=== PATIENT | female | born 1975 | race Caucasian/White ===

== ENCOUNTER 2019-04-29 08:07 | Outpatient (REF) | payer MEDICAID, SELFPAY ==
[2019-04-29 13:40] LABS: Chol HDL Ratio 7.41 mg/dL (0.0-4.40); Cholesterol 200 mg/dL (0-200); Glucose 173 mg/dL (65-115); HDL Cholesterol 27 mg/dL (60-100); LDL Cholesterol Calculated 101 mg/dL (50-129); LDL HDL Ratio 3.74 RATIO (0.00-3.22); Triglycerides 359 mg/dL (0-150)
[2019-04-29 13:49] LABS: Estmated Average Glucose 143; Hemoglobin A1C 6.6 % (4.0-6.0)
== END 2019-04-29 08:08 | disposition home or self-care (01) ==
LOC: LAB 08:07
PROVIDERS: Family Provider Family Medicine; PCP Family Medicine; Visit Provider Dermatology
DX: Z01.89 Encounter for other specified special examinations (principal)
CPT/HCPCS: 80061; 82947; 83036

== ENCOUNTER 2019-05-03 13:39 | Outpatient (CLI) | payer MEDICAID, SELFPAY ==
--- NOTE | 2019-05-03 13:49 | US_ITS ---
WS: [id number] Pelvic ultrasound, 05/03/2019 Clinical Data: PELVIC PAIN Comparison: Pelvic ultrasound, 05/04/2014. Findings: Patient has had a hysterectomy The left ovary was not identified. The right ovary measures 2.52 x 3.86 x 2.39 cm. There is a cyst in the right ovary measuring 1.79 x 1 .99 x 2.42 cm. No fluid is seen in the cul-de-sac. US/US pelvic with transvaginal Impression: 1. Small right ovarian cyst. 2. Left ovary not identified. 3. Hysterectomy.
== END 2019-05-03 13:40 | disposition home or self-care (01) ==
LOC: US 13:42
PROVIDERS: Family Provider Family Medicine; PCP Family Medicine; Visit Provider Nurse Practitioner Family
DX: N83.201 Unspecified ovarian cyst, right side (principal)
CPT/HCPCS: 76830; 76856

== ENCOUNTER 2020-08-24 20:25 | Emergency (ER) | payer MEDICAID, SELFPAY ==
[2020-08-24] VITALS (7 sets, daily range): BP systolic 125–160; BP diastolic 85–99; PULSE 87–101; RESP 16–22; TEMP 37.2; O2SAT 97–99; BMI 53.9
--- NOTE | 2020-08-24 20:41 | XRR_ITS ---
PROCEDURE INFORMATION: Exam: XR Chest Exam date and time: 08/24/2020 8:44 PM Age: 45 years old Clinical indication: Other: Chest pain; Additional info: Cp TECHNIQUE: Imaging protocol: XR of the chest. Views: 1 view. COMPARISON: CR Chest 1 [place] [id number] 09/13/2016 8:06 PM FINDINGS: The lungs are clear of infiltrate. There are no pleural effusions or pneumothorax. The heart size and pulmonary vascularity are normal. XR/XR chest 1V portable [id number] IMPRESSION: No active disease.
--- NOTE | 2020-08-24 20:41 | ECG_ITS ---
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
[2020-08-24 20:58] LABS: Basophils % 0.1 %; Hematocrit 41.2 % (37.0-47.0); Lymphocytes # 2.3 10^3/uL (0.8-4.8); Lymphocytes % 30.1 %; Mean Corpuscular Volume 88.4 fL (81-99); Mean Platelet Volume 11.1 fL (7.4-10.4); Monocytes # 0.6 10^3/uL (0.2-0.9); Monocytes % 7.5 %; Neutrophils # 4.69 10^3/uL (1.8-7.7); Neutrophils % 61.9 %; Nucleated Red Blood Cells % 0 %; Platelet Count 342 10^3/cmm (130-400); Red Blood Count 4.66 10^6/uL (4.1-5.3); Red Cell Distribution Width 14.6 % (12.1-15.1); White Blood Count 7.6 10^3/uL (4.0-10.0)
[2020-08-24 21:13] LABS: Troponin(5th) Baseline 6 ng/L (0-10)
[2020-08-24 21:17] LABS: Alanine Aminotransferase 18 U/L (0-33); Albumin Level 3.9 g/dL (3.5-5.2); Alkaline Phosphatase 151 IU/L (35-105); Anion Gap 18.9 (5-19); Aspartate Amino Transferase 14 U/L (0-32); Blood Urea Nitrogen 10 mg/dL (6-20); Calcium 8.4 mg/dL (8.5-10.5); Carbon Dioxide 21 mmol/L (22-29); Chloride 102 mmol/L (98-107); Globulin 2.7 g/dL (1.3-4.6); Glomerular Filtration Rate 90.1 mL/min (90-130); Glucose 346 mg/dL (65-115); NT Pro B Type Natriuretic Pept 24 pg/mL (0-125); Osmolality Calculated 299 mOsm/kg (285-295); Potassium 3.9 mmol/L (3.5-5.1); Sodium 138 mmol/L (136-145); Total Bilirubin 0.3 mg/dL (0.15-1.2); Total Protein 6.6 g/dL (6.6-8.7)
[2020-08-24] MEDS: morphine 4 mg/mL SDV 1 mL IVP (21:17)
[2020-08-24] MEDS: ondansetron 2 mg/ML SDV 2 mL 4 MG IVP (21:17)
[2020-08-24 21:34] LABS: Lipase 54 U/L (13-60)
[2020-08-24] MEDS: insulin regular-human 100 units/1 mL 8 UNIT IVP (21:39)
[2020-08-24 22:10] LABS: Glucose Point of Care 258 mg/dL (70-110)
[2020-08-24 22:39] LABS: Troponin 5 2HR Delta 0 ABS# (0-10)
--- NOTE | 2020-08-24 22:41 | ECG_ITS ---
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
--- NOTE | 2020-08-25 04:48 | ED_ITS ---
HPI - Chest Pain General: Chief Complaint: Chest Pain Stated Complaint: CP Time Seen by Provider: 08/24/20 20:27 History of Present Illness: HPI narrative: 45-year-old female with a history of hypertension. She presents with chest discomfort radiating to her back and her face. She denies any cough or fever. States it started suddenly while watching TV. It is still present on arrival. She has diabetes, and takes Trulicity. Her blood sugar was noted to be in the 400s on EMS arrival as well. This has the patient concerned. MD complaint: chest pain Pertinent past history: other Onset (ago): hour(s) Timing of current episode: constant Prior episodes: No Onset: during rest Pain location: substernal and left chest Pain radiation: back and other Quality: aching and sharp Relieving factors: nothing Exacerbating factors: nothing Associated symptoms: Reports abdominal pain, diaphoresis and nausea; Deny dyspnea, fever(s), leg edema, palpitations or vomiting Review of Systems Const: Reports: diaphoresis; Denies: fever(s) Eyes: Reports: blurry vision Card: Denies: palpitations Resp: Denies: dyspnea GI: Reports: abdominal pain and nausea; Denies: vomiting Physical Exam Const: GENERAL APPEARANCE: well developed and anxious ORIENTATION/CONSCIOUSNESS: Yes oriented to person, Yes oriented to place and Yes oriented to time HENMT: COMMON NORMALS: normocephalic HEAD & SCALP: normocephalic FACE & SINUS: normal facial exam THROAT: no peritonsillar mass Eye: COMMON NORMALS: EOMs intact bilaterally and conjunctivae normal EYELID: eyelids normal CONJUNCTIVA: Yes conjunctivae normal Neck/C-Spine: GENERAL: No tracheal deviation CERVICAL SPINE: Yes normal cervical lordosis and No Cervical spine tenderness Chest: COMMONS NORMALS: normal inspection of the chest CHEST: Yes tenderness Resp: COMMON NORMALS: clear to auscultation bilaterally EFFORT & INSPECTION: No tachypneic, No respiratory distress, No retractions, No uses accessory muscles and No tracheal deviation AUSCULTATION: clear to auscultation bilaterally, no rhonchi, no wheezes and lung sounds not diminished Cardio: COMMON NORMALS: regular rate and regular rhythm RATE: regular rate RHYTHM: regular rhythm HEART SOUNDS: no murmurs PERIPHERAL PULSES: radial pulses present GI: INSPECTION: No abdominal distension AUSCULTATION: No Hyperactive bowel sounds present and No Hypoactive bowel sounds present PALPATION: No Guarding due to palpation present (GI) and No Rigid due to palpation PERCUSSION: no dullness to percussion and no tympanic to percussion Neuro: SENSORIUM/ORIENTATION: Yes oriented to person, Yes oriented to place and Yes oriented to time Psych: COMMON NORMALS: mental status grossly normal Skin: COMMON NORMALS: no rashes or lesions noted GENERAL SKIN EXAM: no rashes or lesions noted Course Vital Signs: Vital signs: Vital Signs Temperature 99.0 F 08/24/20 20:40 Pulse Rate 87 08/24/20 23:48 Respiratory Rate 16 08/24/20 23:48 Blood Pressure 157/91 08/24/20 23:48 Pulse Oximetry 98 08/24/20 23:48 MDM - Chest Pain MDM Narrative: Medical decision making narrative: 45-year-old female with an atypical type chest pain. And is reproducible on exam. EKG shows no acute changes. Troponin did not elevated 2 hours. Her laboratory is otherwise benign. She will be allowed home. She was counseled on her diagnosis of chest wall pain or costochondritis. She has diabetes, her blood sugar was high. It came down with IV insulin here. Because of this, we are not using steroids on this patient. She also has a history of an allergy that is significant to ibuprofen, so we will not be using anti-inflammatories. Lab Data: Labs: Lab Results 08/24/20 08/24/20 08/24/20 Range/Units 20:20 20:20 20:20 WBC 7.6 (4.0-10.0) 10^3/ uL RBC 4.66 (4.1-5.3) 10^6/u L Hgb 14.0 (11.5-15.3) g/dL Hct 41.2 (37.0-47.0) % MCV 88.4 (81-99) fL MCH 30.0 (28.0-34.0) pg MCHC 34.0 (30.0-36.0) g/dL RDW 14.6 (12.1-15.1) % Plt Count 342 (130-400) 10^3/c mm MPV 11.1 H (7.4-10.4) fL Neut % (Auto) 61.9 % Lymph % (Auto) 30.1 % [place] % (Auto) 7.5 % Eos % (Auto) 0.0 % Baso % (Auto) 0.1 % Neut # (Auto) 4.69 (1.8-7.7) 10^3/u L Lymph # (Auto) 2.3 (0.8-4.8) 10^3/u L [place] # (Auto) 0.6 (0.2-0.9) 10^3/u L Eos # (Auto) 0.0 (0.0-0.8) 10^3/u L Baso # (Auto) 0.0 (0.0-0.1) 10^3/u L Nucleated RBC % (a uto) 0 % Nucleated RBCs # 0.0 /100WBC Sodium 138 (136-145) mmol/L Potassium 3.9 (3.5-5.1) mmol/L Chloride 102 (98-107) mmol/L Carbon Dioxide 21 L (22-29) mmol/L Anion Gap 18.9 (5-19) BUN 10 (6-20) mg/dL Creatinine 0.7 (0.5-0.9) mg/dL GFR Calculation 90.1 (90-130) mL/min Glucose 346 H (65-115) mg/dL POC Glucose (70-110) mg/dL Calculated Osmolal ity 299 H (285-295) mOsm/k g Calcium 8.4 L (8.5-10.5) mg/dL Total Bilirubin 0.3 (0.15-1.2) mg/dL AST 14 (0-32) U/L ALT 18 (0-33) U/L Alkaline Phosphata se 151 H (35-105) IU/L Troponin T Baselin e 6 (0-10) ng/L Troponin T [address] [place] (0-10) ng/L Delta Troponin T (0-10) ABS# NT-Pro-B Natriuret Pep 24 (0-125) pg/mL Total Protein 6.6 (6.6-8.7) g/dL Albumin 3.9 (3.5-5.2) g/dL Globulin 2.7 (1.3-4.6) g/dL Lipase (13-60) U/L 08/24/20 08/24/20 08/24/20 Range/Units 20:20 22:07 22:08 WBC (4.0-10.0) 10^3/ uL RBC (4.1-5.3) 10^6/u L Hgb (11.5-15.3) g/dL Hct (37.0-47.0) % MCV (81-99) fL MCH (28.0-34.0) pg MCHC (30.0-36.0) g/dL RDW (12.1-15.1) % Plt Count (130-400) 10^3/c mm MPV (7.4-10.4) fL Neut % (Auto) % Lymph % (Auto) % [place] % (Auto) % Eos % (Auto) % Baso % (Auto) % Neut # (Auto) (1.8-7.7) 10^3/u L Lymph # (Auto) (0.8-4.8) 10^3/u L [place] # (Auto) (0.2-0.9) 10^3/u L Eos # (Auto) (0.0-0.8) 10^3/u L Baso # (Auto) (0.0-0.1) 10^3/u L Nucleated RBC % (a uto) % Nucleated RBCs # /100WBC Sodium (136-145) mmol/L Potassium (3.5-5.1) mmol/L Chloride (98-107) mmol/L Carbon Dioxide (22-29) mmol/L Anion Gap (5-19) BUN (6-20) mg/dL Creatinine (0.5-0.9) mg/dL GFR Calculation (90-130) mL/min Glucose (65-115) mg/dL POC Glucose 258 H (70-110) mg/dL Calculated Osmolal ity (285-295) mOsm/k g Calcium (8.5-10.5) mg/dL Total Bilirubin (0.15-1.2) mg/dL AST (0-32) U/L ALT (0-33) U/L Alkaline Phosphata se (35-105) IU/L Troponin T Baselin e (0-10) ng/L Troponin T [address] [place] 6.00 (0-10) ng/L Delta Troponin T 0 (0-10) ABS# NT-Pro-B Natriuret Pep (0-125) pg/mL Total Protein (6.6-8.7) g/dL Albumin (3.5-5.2) g/dL Globulin (1.3-4.6) g/dL Lipase 54 (13-60) U/L Discharge Plan Discharge Patient Disposition: Home Clinical Impression: Chest pain Qualifiers: Chest pain type: unspecified Qualified Code(s): R07.9 - Chest pain, unspecified Condition: Stable Prescriptions: No Action atorvastatin 40 mg Tablet 40 mg PO BEDTIME@2200 RF: 0 tizanidine 4 mg Tablet 4 mg PO TID PRN (Reason: MUSCLE SPASMS) RF: 0 hydrocodone-acetaminophen 5-325 mg Tablet 1 tab PO Q4H PRN (Reason: Pain) RF: 0 propranolol 20 mg Tablet 20 mg PO BID@0600,2200 RF: 0 topiramate 50 mg Tablet 50 mg PO BID@0600,2200 RF: 0 Discharge Orders: Discharge ED (Routine); Ordered 08/24/20 Ordered By: Jf Mann Referrals: Socrates Olvera [Primary Care Provider] - 1-3 days Patient Instructions: Chest Pain (ED) Activity Restrictions/Additional Instructions: Return for return of or worsening chest pain, fever, cough, shortness of breath, any other concerning symptoms. Coding Level of Care Code ED Stylist Apprentice for Candace Gauthier
== END 2020-08-24 23:45 | disposition home or self-care (01) ==
PROVIDERS: Emergency Provider Emergency Medicine; PCP Family Medicine
DX: R07.9 Chest pain, unspecified (principal)
CPT/HCPCS: 36415; 36416; 71045; 80053; 82962; 83690; 83880; 84484; 85025; 93005; 96374; 96375; 99284; J1815; J2270; J2405

== ENCOUNTER → 2021-04-03 07:52 | Outpatient (BNVA) | payer MEDICAID, SELFPAY | PROVIDERS: PCP Family Medicine; Referring Provider Nurse Practitioner Family; Visit Provider Specialist | DX: G62.9 Polyneuropathy, unspecified (principal); R29.818 Other symptoms and signs involving the nervous system | CPT/HCPCS: 95885; 95886; 95910; 99202 ==

== ENCOUNTER → 2021-06-20 10:18 | Outpatient (BNVA) | payer MEDICAID, SELFPAY | PROVIDERS: PCP Family Medicine; Visit Provider Specialist | DX: E11.40 Type 2 diabetes mellitus with diabetic neuropathy, unspecified (principal); R29.818 Other symptoms and signs involving the nervous system; E53.8 Deficiency of other specified B group vitamins; E66.3 Overweight; Z68.43 Body mass index [BMI] 50.0-59.9, adult | CPT/HCPCS: 99214; 99215 ==

== ENCOUNTER → 2021-09-19 12:59 | Outpatient (BNVA) | payer MEDICAID, SELFPAY | PROVIDERS: PCP Family Medicine; Visit Provider Surgery | DX: R19.4 Change in bowel habit (principal); R10.9 Unspecified abdominal pain; K76.0 Fatty (change of) liver, not elsewhere classified | CPT/HCPCS: 99203 ==

== ENCOUNTER 2021-11-18 07:36 | Outpatient (CLI) | payer MEDICAID, SELFPAY ==
--- NOTE | 2021-11-18 08:00 | US_ITS ---
WS: [id number] ULTRASOUND ABDOMEN LIMITED CLINICAL INFORMATION: rule out fatty liver COMPARISON: None. FINDINGS: Liver Size: Enlarged Craniocaudal length: 24.0 cm. Echogenicity: Coarse Surface nodularity: None. Mass (size and location): None. Bile ducts Intrahepatic ducts: Normal. Common bile duct diameter: 0.5 cm. Gallbladder Cholecystectomy Pancreas Normal as visualized. Right kidney: Normal. Hydronephrosis: None. Size: 11.3 cm x 4.4 cm x 5.4 cm. Abdominal aorta and IVC Visualized portions are normal. Ascites: None. US/US liver [id number] IMPRESSION: 1. Hepatomegaly with diffuse fatty infiltration liver. 2. Prior cholecystectomy. 3. No hydronephrosis in RIGHT kidney. 4. Normal common bile duct. 5. No ascites.
== END 2021-11-18 07:37 | disposition home or self-care (01) ==
LOC: RAD 07:37
PROVIDERS: PCP Family Medicine; Visit Provider Surgery
DX: R10.9 Unspecified abdominal pain (principal); E66.01 Morbid (severe) obesity due to excess calories; R16.0 Hepatomegaly, not elsewhere classified; K76.89 Other specified diseases of liver; Z90.49 Acquired absence of other specified parts of digestive tract
CPT/HCPCS: 76705

== ENCOUNTER 2021-12-12 06:23 | Day surgery (SDC) | payer MEDICAID, SELFPAY ==
[2021-12-10 11:00] VITALS: BMI 50.9
[2021-12-12 06:38] VITALS: BP 174/137; PULSE 94; RESP 18; TEMP 36.1; O2SAT 93
[2021-12-12] MEDS: sodium chloride 0.9% 1,000 ML 30 ML IV (06:44)
--- NOTE | 2021-12-12 07:12 | ANES.PREANE2 ---
Pre-Anesthetic Assessment Height/Weight: Height 1.73 m Weight 151.953 kg Temp Pulse Resp BP Pulse Ox O2 Del Method 97.0 F L 94 18 174/137 93 12/12/21 06:38 12/12/21 06:38 12/12/21 06:38 12/12/21 06:38 12/12/21 06:38 12/12/21 06:38 Preop Diagnosis: Abdominal pain and change in bowel habit Operation Date: 12/12/21 07:45 Proposed Procedures p 33479 - EGD [id number] R19.4(Not Applicable) - Jose Morrison MD s Colonoscopy(Not Applicable) - Jose Morrison MD Familial anesthetic complications: none Was Beta Marilia taken within 24 hours: N/A (Held since 12/10/21) Last intake: Intake Last Liquid Date 12/11/21 Last Liquid Time 23:50 Last Solid Date 12/10/21 Last Solid Time 19:00 Social No alcohol and No tobacco Exam alert, oriented x 3, clear to auscultation bilaterally and regular rate & rhythm Airway Cervical ROM: Other (Limited extension d/t pain ) Mallampati: Class II Dentition: full Pulmonary Asthma (As a child) and Sleep Apnea CV/HEM None reported None reported Hepatic Fatty liver GI Abdominal pain Metabolic Diabetes Mellitus and Hyperlipidemia [facility] Osteoarthritis/DJD Neuropsych Neuropathy Anesthetic Plan ASA status: 3 Anesthesia: Anesthesia Evaluation, General and MAC Other: I discussed with the patient risks, goals, and benefits of MAC and general anesthesia. We discussed spectrum of MAC anesthesia including conversion to general as well as possibility of recall of intraoperative stimuli including discomfort/pain. Patient agrees to proceed with MAC. Risk of > 500 ml blood loss (7ml/kg in children): No Medications/Allergies Home Medications Medication Instructions Recorded Confirmed Last Taken Type atorvastatin 40 mg tablet 40 mg PO BEDTIME@2200 08/24/20 12/12/21 12/10/21 History hydrocodone 5 mg-acetaminophen 325 1 tab PO Q4H PRN Pain 08/24/20 12/12/21 12/10/21 History mg tablet propranolol 20 mg tablet 20 mg PO BID@0600,2200 08/24/20 12/12/21 12/10/21 History tizanidine 4 mg tablet 4 mg PO TID PRN MUSCLE SPASMS 06/07/1112/12/21 12/10/21 History topiramate 50 mg tablet 50 mg PO BID@0600,2200 08/24/20 12/12/21 12/10/21 History dulaglutide 1.5 mg/0.5 mL 1.5 mg SUBCUT DIRECTED 09/19/21 12/12/21 12/08/21 History subcutaneous pen injector (Trulicity) sumatriptan succinate 100 mg tablet 100 mg PO ONCE PRN unknown 09/19/21 12/12/21 Unknown History Allergies Allergy/AdvReac Type Severity Reaction Status Date / Time cephalexin [From Keflex] Allergy ALGY-Anaphy Verified 12/12/21 06:35 laxis erythromycin base Allergy ALGY-Anaphy Verified 12/12/21 06:35 laxis ibuprofen Allergy ALGY-Anaphy Verified 12/12/21 06:35 laxis latex Allergy ALGY-Rash Verified 12/12/21 06:35 Penicillins Allergy ALGY-Rash Verified 12/12/21 06:35 silicone Allergy ALGY-Rash Verified 12/12/21 06:35 Sulfa (Sulfonamide Allergy ALGY-Anaphy Verified 12/12/21 06:35 Antibiotics) laxis triazolam [From Halcion] Allergy ALGY-Anaphy Verified 12/12/21 06:35 laxis Current Medications Generic Name Dose Route Start Last Admin Trade Name Freq PRN Reason Stop Dose Admin Sodium Chloride 1,000 mls @ 30 mls/hr 12/12/21 06:30 12/12/21 06:44 Sodium Chloride 0.9% IV 12/13/21 06:29 30 mls/hr .Q24H BUSTER Administration PFSH Anesthesia Social History Smoking and tobacco status: never smoked Alcohol intake: never History of recent travel: No Data Anesthesia Cardiac Studies: No Data to Display
--- NOTE | 2021-12-12 07:53 | P.HP_ITS ---
Same Day Surgery H&P Indication for Procedure/HPI DATE OF PROCEDURE: December 12, 2021 CHIEF COMPLAINT/INDICATIONFOR SURGICAL PROCEDURE: Bowel issues PREOP DIAGNOSIS: Abdominal pain and change in bowel habit PLANNED PROCEDURE: Operation Date: 12/12/21 07:45 Proposed Procedures p 16853 - EGD [id number] R19.4(Not Applicable) - Jose Morrison MD s Colonoscopy(Not Applicable) - Jose Morrison MD 09/19/2021 This is a pleasant 46 years old female patient morbidly obese with a current weight of 344 pounds and a BMI of 52.? Patient reports history of dull aching pain particularly in the upper abdomen associated with nausea and vomiting, patient had her gallbladder removed.? Also there is an association of mild hear tburn.? Her pain gets worse with spices and grease and gets better with bland food.? She reports in addition alternating bowel habits in the form of diarrhea and constipation and she often bleeds with her hemorrhoids.? When she has a flareup.? Patient is referred to me for further evaluation potential management Interim history 12/12/2021 Patient comes today for diagnostic EGD and colonoscopy. No much changes since last clinic visit ROS All systems have been reviewed negative except as for the above or per problem list. Medications/Allergies* Home Medications Medication Instructions Recorded Confirmed Type atorvastatin 40 mg tablet 40 mg PO BEDTIME@2200 08/24/20 12/12/21 History hydrocodone 5 mg-acetaminophen 325 1 tab PO Q4H PRN Pain 08/24/20 12/12/21 History mg tablet propranolol 20 mg tablet 20 mg PO BID@0600,2200 08/24/20 12/12/21 History tizanidine 4 mg tablet 4 mg PO TID PRN MUSCLE SPASMS 08/24/20 12/12/21 History topiramate 50 mg tablet 50 mg PO BID@0600,2200 08/24/20 12/12/21 History dulaglutide 1.5 mg/0.5 mL 1.5 mg SUBCUT DIRECTED 09/19/21 12/12/21 History subcutaneous pen injector (Trulicity) sumatriptan succinate 100 mg tablet 100 mg PO ONCE PRN unknown 09/19/21 12/12/21 History Allergies/Adverse Reactions Allergy/AdvReac Type Severity Reaction Status Date / Time cephalexin [From Keflex] Allergy ALGY-Anaphy Verified 12/12/21 07:54 laxis erythromycin base Allergy ALGY-Anaphy Verified 12/12/21 07:54 laxis ibuprofen Allergy ALGY-Anaphy Verified 12/12/21 07:54 laxis latex Allergy ALGY-Rash Verified 12/12/21 07:54 Penicillins Allergy ALGY-Rash Verified 12/12/21 07:54 silicone Allergy ALGY-Rash Verified 12/12/21 07:54 Sulfa (Sulfonamide Allergy ALGY-Anaphy Verified 12/12/21 07:54 Antibiotics) laxis triazolam [From Halcion] Allergy ALGY-Anaphy Verified 12/12/21 07:54 laxis Current Medications: Generic Name Dose Route Start Last Admin Trade Name Freq PRN Reason Stop Dose Admin Sodium Chloride 1,000 mls @ 30 mls/hr 12/12/21 06:30 12/12/21 06:44 Sodium Chloride 0.9% IV 12/13/21 06:29 30 mls/hr .Q24H BUSTER Administration Pertinent History/Comorbid Conditions* Social History Smoking and tobacco status: never smoked Alcohol intake: never History of recent travel: No Pertinent Exam Findings alert, oriented x 3, regular rate & rhythm and procedure specific exam findings (Abdominal exam nontender nondistended soft, obese) Recommendations Surgery/Procedure today (Diagnostic EGD and colonoscopy with possible biopsy) Coding Level of Care Code Acute International Representative for Candace Gauhtier
[2021-12-12 08:45] VITALS: BP 125/75; PULSE 98; RESP 12; TEMP 36.8; O2SAT 94
[2021-12-12 08:56] VITALS: BP 118/88; PULSE 100; RESP 18; O2SAT 96
--- NOTE | 2021-12-12 14:29 | ANE.PACU2 ---
Inpatient post-anesthesia follow up: Airway intact: Yes Vital signs: Temperature 98.3 F Pulse Rate 100 Respiratory Rate 18 Blood Pressure 118/88 Pulse Oximetry 96 Oxygen Delivery Me thod Room Air Oxygen Flow Rate Fraction of Inspir ed Oxygen Hydration adequate: Yes Nausea and vomiting: No Pain level: 1 Mental status: Baseline
== END 2021-12-12 09:24 | disposition home or self-care (01) ==
PROVIDERS: PCP Family Medicine; Visit Provider Surgery
PROC: 0DJ08ZZ Inspection of Upper Intestinal Tract, Via Natural or Artificial Opening Endoscopic (ICD-10-PCS; CPT 43235; principal; 2021-12-12 07:45)
PROC: 0DJD8ZZ Inspection of Lower Intestinal Tract, Via Natural or Artificial Opening Endoscopic (ICD-10-PCS; CPT 45378; 2021-12-12 07:45)
DX: R19.4 Change in bowel habit (principal); R10.9 Unspecified abdominal pain; E66.01 Morbid (severe) obesity due to excess calories; Z68.43 Body mass index [BMI] 50.0-59.9, adult; K57.30 Diverticulosis of large intestine without perforation or abscess without bleeding; K29.80 Duodenitis without bleeding; K29.50 Unspecified chronic gastritis without bleeding; E78.5 Hyperlipidemia, unspecified; E11.40 Type 2 diabetes mellitus with diabetic neuropathy, unspecified
CPT/HCPCS: 43239; 45378; 82274; 83630; 87493; 87506; 88305; 88342; J2704; J7030

== ENCOUNTER → 2021-12-26 14:26 | Outpatient (BNVA) | payer MEDICAID, SELFPAY | PROVIDERS: PCP Family Medicine; Visit Provider Surgery | DX: Z09 Encounter for follow-up examination after completed treatment for conditions other than malignant neoplasm (principal); K57.31 Diverticulosis of large intestine without perforation or abscess with bleeding; K29.70 Gastritis, unspecified, without bleeding; K76.0 Fatty (change of) liver, not elsewhere classified; R19.4 Change in bowel habit | CPT/HCPCS: 99213 ==

== ENCOUNTER → 2022-06-04 08:07 | Outpatient (BNVA) | payer MEDICAID, SELFPAY | PROVIDERS: PCP Family Medicine; Visit Provider Specialist | DX: E11.40 Type 2 diabetes mellitus with diabetic neuropathy, unspecified (principal); F44.5 Conversion disorder with seizures or convulsions; G43.019 Migraine without aura, intractable, without status migrainosus; K76.0 Fatty (change of) liver, not elsewhere classified; Z79.85 Long-term (current) use of injectable non-insulin antidiabetic drugs | CPT/HCPCS: 99215 ==

== ENCOUNTER 2022-06-04 09:22 | Outpatient (CLI) | payer MEDICAID, SELFPAY ==
[2022-06-04 10:01] LABS: Erythrocyte Sedimentation Rate 14 mm/hr (0-15)
[2022-06-04 10:33] LABS: Vitamin B12 218 pg/mL (232-1245)
[2022-06-04 10:34] LABS: Folate Level 14.6 ng/mL (4.8-37.3)
[2022-06-05 14:49] LABS: COMPLEMENT COMPONENT C3C 213 mg/dL (83-193); COMPLEMENT COMPONENT C4C 42 mg/dL (15-57)
[2022-06-06 13:03] LABS: ALBUMIN 3.8 g/dL (3.8-4.8); ALPHA 1 GLOBULIN 0.3 g/dL (0.2-0.3); ALPHA 2 GLOBULIN 0.9 g/dL (0.5-0.9); BETA 1 GLOBULIN 0.6 g/dL (0.4-0.6); BETA 2 GLOBULIN 0.5 g/dL (0.2-0.5); CENTROMERE B ANTIBODY <1.0 NEG AI (<1.0 NEG); COMPLEMENT, TOTAL (CH50) >60 U/mL (31-60); JO-1 ANTIBODY <1.0 NEG AI (<1.0 NEG); RNP ANTIBODY <1.0 NEG AI (<1.0 NEG); SCL-70 ANTIBODY <1.0 NEG AI (<1.0 NEG); SJOGREN'S ANTIBODY (SS-A) <1.0 NEG AI (<1.0 NEG); SM ANTIBODY <1.0 NEG AI (<1.0 NEG); SS-B <1.0 NEG AI (<1.0 NEG)
[2022-06-06 16:15] LABS: THYROID PEROXIDASE ANTIBODIES 3 IU/mL (<9)
[2022-06-10 10:59] LABS: DNA AB (DS) CRITHIDIA,IFA NEGATIVE (NEGATIVE)
[2022-06-10 14:20] LABS: ANA PATTERN Nuclear, Speckled; ANA SCREEN, IFA POSITIVE (NEGATIVE); ANA TITER 1:40 titer
== END 2022-06-04 09:23 | disposition home or self-care (01) ==
LOC: LAB 09:29
PROVIDERS: PCP Family Medicine; Visit Provider Specialist
DX: E11.40 Type 2 diabetes mellitus with diabetic neuropathy, unspecified (principal); G62.9 Polyneuropathy, unspecified; R29.818 Other symptoms and signs involving the nervous system
CPT/HCPCS: 36415; 82607; 82746; 83520; 84155; 84165; 85651; 86160; 86162; 86235; 86255; 86376; 86431

== ENCOUNTER → 2022-09-09 08:01 | Outpatient (BNVA) | payer MEDICAID, SELFPAY | PROVIDERS: PCP Family Medicine; Visit Provider Specialist | DX: E11.42 Type 2 diabetes mellitus with diabetic polyneuropathy (principal); F44.5 Conversion disorder with seizures or convulsions; K76.0 Fatty (change of) liver, not elsewhere classified; E53.8 Deficiency of other specified B group vitamins; Z79.85 Long-term (current) use of injectable non-insulin antidiabetic drugs | CPT/HCPCS: 99214 ==

== ENCOUNTER 2023-09-21 15:15 | Emergency (ER) | payer MEDICAID, SELFPAY ==
--- NOTE | 2023-09-21 15:14 | ECG_ITS ---
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 Measurements Intervals [place] Rate: 89 P: 47 [place]: 188 QRS: 11 QRSD: 98 T: -5 QT: 368 QTc: 450 Interpretive Statements SINUS RHYTHM NONSPECIFIC T-WAVE ABNORMALITY Compared to ECG 08/24/2020 23:05:45 T-wave abnormality now present Electronically Signed On 09-22-2023 21:52:22 CDT by Shanda Vidal M.D. [email or web address].[employer]/store/NU/[id number] f
--- NOTE | 2023-09-21 15:32 | XR_ITS ---
WS: [id number] XR chest 1V portable [id number] REASON FOR EXAM: chest pain FINDINGS: The chest is unchanged compared to 08/24/2020. Mild tortuosity of the thoracic aorta. Normal heart size. Calcified granulomatous disease in both hemithoraces. No acute pulmonary parenchymal or pleural abnormality. No lung nodule or lung mass. No adenopathy. Significant degenerative spondylosis in the mid and lower thoracic spine. XR/XR chest 1V portable [id number] IMPRESSION: Stable chest with no acute abnormality.
[2023-09-21 15:38] VITALS: BP 137/95; PULSE 95; RESP 18; TEMP 36.5; O2SAT 97; BMI 57.7
[2023-09-21 16:03] LABS: Basophils # 0.1 10^3/uL (0.0-0.1); Basophils % 0.6 %; Eosinophils # 0.1 10^3/uL (0.0-0.8); Eosinophils % 0.9 %; Hematocrit 47.8 % (36-47); Lymphocytes # 1.9 10^3/uL (0.8-4.8); Lymphocytes % 12.9 %; Mean Corpuscular HGB Conc 33.5 g/dL (30-55); Mean Corpuscular Hemoglobin 28.8 pg (27-33); Mean Corpuscular Volume 86.1 fl (85-98); Mean Platelet Volume 10.6 fL (7.4-10.4); Monocytes # 0.7 10^3/uL (0.2-0.9); Monocytes % 4.7 %; Neutrophils % 80.3 %; Nucleated Red Blood Cells % 0 %; Platelet Count 415 10^3/cmm (157-399); Red Blood Count 5.55 10^6/uL (3.85-5.65); Red Cell Distribution Width 14.2 % (12.1-15.1); White Blood Count 14.44 10^3/uL (3.29-11.43)
[2023-09-21 16:23] LABS: Troponin(5th) Baseline < 6 ng/L (0-10)
[2023-09-21 16:24] LABS: Alanine Aminotransferase 28 U/L (0-33); Albumin Level 4.6 g/dL (3.5-5.2); Alkaline Phosphatase 161 U/L (35-105); Anion Gap 18.5 (5-19); Aspartate Amino Transferase 20 U/L (0-32); Blood Urea Nitrogen 14 mg/dL (6-20); Calcium 9.9 mg/dL (8.5-10.5); Carbon Dioxide 22 mmol/L (22-29); Chloride 103 mmol/L (98-107); Creatinine Clr Calc Pharmacy 128.0644; Globulin 3.7 g/dL (1.3-4.6); Glomerular Filtration Rate 66.5 mL/min (90-130); Glucose 240 mg/dL (65-115); Osmolality Calculated 296 mOsm/kg (285-295); Potassium 4.5 mmol/L (3.5-5.1); Sodium 139 mmol/L (136-145); Total Bilirubin 0.4 mg/dL (0.15-1.2); Total Protein 8.3 g/dL (6.6-8.7)
--- NOTE | 2023-09-21 17:32 | ECG_ITS ---
[facility] Test Date: 2023-09-21 Pat Name: Rosemary Trevino Department: Room: Gender: Female Property Loss Insurance Claim Adjuster: : 1975 Requested By: Ynes Rahman Order Number: [id number] Karly MD: Shanda Vidal M.D. Measurements Intervals [place] Rate: 89 P: 38 MT: 179 QRS: 16 QRSD: 90 T: 37 QT: 361 QTc: 440 Interpretive Statements SINUS RHYTHM NONSPECIFIC T-WAVE ABNORMALITY Compared to ECG 09/21/2023 15:14:34 No significant changes Electronically Signed On 09-22-2023 22:07:36 CDT by Shanda Vidal M.D. [email or web address] [email or web address] biloxiAxerion Therapeuticsgood samaritan hospitalTELOS/store/OM/[id number]/ecg/[id number].pdf
--- NOTE | 2023-09-21 18:05 | CTR_ITS ---
PROCEDURE INFORMATION: Exam: CT Abdomen And Pelvis With Contrast Exam date and time: 09/21/2023 6:59 PM Age: 48 years old Clinical indication: Abdominal pain; Generalized; Additional info: Abd pain/vomiting w/ blood TECHNIQUE: Imaging protocol: Computed tomography of the abdomen and pelvis with contrast. Radiation optimization: All CT scans at this facility use at least one of these dose optimization techniques: automated exposure control; mA and/or kV adjustment per patient size (includes targeted exams where dose is matched to clinical indication); or iterative reconstruction. Contrast material: OMNI 350; Contrast volume: 100 ml; Contrast route: INTRAVENOUS (IV); COMPARISON: CT kidney stone [id number] 05/31/2017 9:30 PM RADIATION DOSE METRICS: Total DLP (mGy-cm): 1491.46 FINDINGS: Lungs: Lung bases are clear. No pleural effusion. Liver: Normal. No mass. Gallbladder and biliary ducts: The gallbladder has been resected. Pancreas: Normal. No ductal dilation. Spleen: Normal. No splenomegaly. Adrenal glands: Normal. No mass. Kidneys and ureters: Normal. No hydronephrosis. Stomach and bowel: Unremarkable. No obstruction. No mucosal thickening. Appendix: No evidence of appendicitis. Intraperitoneal space: Unremarkable. No free air. No significant fluid collection. Vasculature: Unremarkable. No abdominal aortic aneurysm. Lymph nodes: Unremarkable. No enlarged lymph nodes. Urinary bladder: Unremarkable as visualized. Reproductive: Unremarkable as visualized. Bones/joints: Unremarkable. No acute fracture. Soft tissues: Unremarkable. CT/CT abdomen pelvis w con* [id number] IMPRESSION: No acute findings.
--- NOTE | 2023-09-21 18:07 | ED_ITS ---
HPI - Chest Pain 2 General: Chief Complaint: Chest Pain Stated Complaint: chest pain, vomit, fainting Time Seen by Provider: 09/21/23 17:53 Source: patient Mode of arrival: ambulatory Limitations: no limitations History of Present Illness: Patient is a 48-year-old female who presents to the emergency department complaining of multiple symptoms beginning at 1500 today. Patient states she had sudden onset of nausea and vomiting stating that there is blood in her vomit. This was associated with some upper abdominal pain, chest pain that radiated to the back, and shortness of breath. She notes that she had a heart attack when she was 19, however was not hospitalized, did not receive a cardiac cath, and did not have outpatient cardiac workup. She is morbidly obese and does appear anxious at this time. She has boot on her left ankle which she says is from injuring herself trying to kick a cricket, and states this is being worked up at this time. She feels short of breath at this time, however states that the rest of her symptoms are not present. No other pertinent past medical history to report other than diabetes. MD complaint: chest pain and other (Shortness of breath, abdominal pain, nausea and vomiting) Pertinent past history: prior PA (Subjective) Onset (ago): hour(s) Timing of current episode: now resolved (Still feels short of breath) Prior episodes: No Onset: during rest Pain location: substernal Pain radiation: back Severity: mild Relieving factors: nothing Exacerbating factors: nothing Associated symptoms: Reports abdominal pain, dyspnea, nausea and vomiting; Deny fever(s) or palpitations Treatment prior to arrival: none Review of Systems 2 General: Reports: 10 or more systems reviewed and unremarkable except in HPI and below Const: Denies: fever(s), chills or fatigue Eyes: Denies: change in vision ENMT: Denies: throat pain, ear or mastoid pain or nasal discharge Card: Reports: chest pain; Denies: palpitations, swelling of feet/ankles or lightheadedness Resp: Reports: dyspnea; Denies: productive cough or wheezing GI: Reports: abdominal pain, nausea, vomiting and hematemesis; Denies: diarrhea or constipation : Denies: flank pain, difficulty voiding, dysuria or urinary frequency Musc: Denies: neck pain, back pain or joint pain Skin/Breast: Denies: rash Neuro: Denies: headache(s), numbness in extremities or weakness in extremities PFSH ED 2 PFSH: Medical History Abdominal pain Social History Smoking and tobacco/nicotine status: never used tobacco/nicotine Alcohol intake: never Substance/Drug Use: never Physical Exam 2 Const: COMMON NORMALS: no acute distress, patient oriented x3 and no limitations GENERAL APPEARANCE: cooperative, anxious and appears older than stated age NUTRITIONAL APPEARANCE: obese morbidly obese O RIENTATION/CONSCIOUSNESS: Yes awake, Yes oriented to person, Yes oriented to place and Yes oriented to time HENMT: COMMON NORMALS: normocephalic, atraumatic, hearing grossly normal bilaterally, moist oral mucous membranes and oropharynx normal HEAD & SCALP: normocephalic and atraumatic Eye: COMMON NORMALS: Equal, round and reactive pupils present, EOMs intact bilaterally and conjunctivae normal CONJUNCTIVA: Yes conjunctivae normal P UPIL: Yes Equal, round and reactive pupils present Neck/C-Spine: COMMON NORMALS: full ROM, supple and no JVD Chest: COMMONS NORMALS: normal inspection of the chest and normal palpation of entire chest wall Resp: COMMON NORMALS: normal respiratory effort, No retractions, No use of accessory muscles and clear to auscultation bilaterally AUSCULTATION: clear to auscultation bilaterally Cardio: COMMON NORMALS: no JVD, regular rate, regular rhythm, No clicks present (Cardio), No murmurs present (Cardio) and No rub (Cardio) RATE: r egular rate RHYTHM: regular rhythm GI: COMMON NORMALS: Normal to inspection, nondistended, normoactive bowel sounds present and Soft to palpation AUSCULTATION: Yes normoactive bowel sounds PALPATION: Yes Soft to palpation RECTAL EXAM: deferred OTHER: Some tenderness to palpation of the left side of the abdomen. Very obese abdomen. Extremity: COMMON NORMALS: full ROM and capillary refill normal NARRATIVE EXTREMITY EXAM: Boot to left lower extremity Neuro: COMMON NORMALS: patient oriented x3, moves all extremities, no focal motor deficits and no sensory deficits noted SENSORIUM/ORIENTATION: Yes oriented to person, Yes oriented to place and Yes oriented to time Psych: COMMON NORMALS: mental status grossly normal and Normal thought process present THOUGHT PROCESS: Normal thought process present Skin: COMMON NORMALS: no rashes or lesions noted GENERAL SKIN EXAM: no rashes or lesions noted Course 2 Vital Signs: Vital signs: Vital Signs Temperature 97.7 F 09/21/23 15:38 Pulse Rate 95 09/21/23 15:38 Respiratory Rate 18 09/21/23 15:38 Blood Pressure 137/95 09/21/23 15:38 Pulse Oximetry 97 09/21/23 15:38 Oxygen Delivery Me thod Room Air 09/21/23 15:38 MDM - Chest Pain Medical Decision Making Patient presented with numerous symptoms that occurred suddenly beginning at 1500 today. Her EKG was unremarkable, and second EKG unchanged from previous as there were no acute ST segment changes. All of her blood work was essentially normal including a normal urinalysis and normal troponin and 2-hour troponin. Patient did note a subjective history of PA though this history is unreliable as she is unable to elaborate on what occurred at that time and states she did not have any outpatient management done. She was noting some left-sided abdominal pain that was new and in association with nausea and vomiting, of which she reported some blood in her vomit. Because of this I scanned her abdomen that did not demonstrate any acute findings. Potential etiology includes gastroesophageal reflux versus gastritis, and I did instruct her to take [id number] Pepcid to see if this relieves her symptoms. Additionally I told her to get with primary care for further management and for reevaluation, and strict return precautions were given. Due to her negative overall workup I feel she is safe to go home at this time and she states she is ready to go home and eat. Lab Data 09/21/23 15:53 09/21/23 15:53 Radiology Impressions Chest X-Ray 09/21/23 15:32 IMPRESSION: Stable chest with no acute abnormality. Abdomen/Pelvis CT 09/21/23 18:05 IMPRESSION: No acute findings. Laboratory Results WBC 14.44 10^3/uL (3.29-11.43) H 09/21/23 15:53 RBC 5.55 10^6/uL (3.85-5.65) 09/21/23 15:53 Hgb 16.00 g/dL (11.27-16.99) 09/21/23 15:53 Hct 47.8 % (36-47) H 09/21/23 15:53 MCV 86.1 fl (85-98) 09/21/23 15:53 MCH 28.8 pg (27-33) 09/21/23 15:53 MCHC 33.5 g/dL (30-55) 09/21/23 15:53 RDW 14.2 % (12.1-15.1) 09/21/23 15:53 Plt Count 415 10^3/cmm (157-399) H 09/21/23 15:53 MPV 10.6 fL (7.4-10.4) H 09/21/23 15:53 Neut % (Auto) 80.3 % 09/21/23 15:53 Lymph % (Auto) 12.9 % 09/21/23 15:53 [place] % (Auto) 4.7 % 09/21/23 15:53 Eos % (Auto) 0.9 % 09/21/23 15:53 Baso % (Auto) 0.6 % 09/21/23 15:53 Neut # (Auto) 11.60 10^3/uL (1.8-7.7) H 09/21/23 15:53 Lymph # (Auto) 1.9 10^3/uL (0.8-4.8) 09/21/23 15:53 [place] # (Auto) 0.7 10^3/uL (0.2-0.9) 09/21/23 15:53 Eos # (Auto) 0.1 10^3/uL (0.0-0.8) 09/21/23 15:53 Baso # (Auto) 0.1 10^3/uL (0.0-0.1) 09/21/23 15:53 Nucleated RBC % (auto) 0 % 09/21/23 15:53 Nucleated RBCs # 0.0 /100WBC 09/21/23 15:53 Sodium 139 mmol/L (136-145) 09/21/23 15:53 Potassium 4.5 mmol/L (3.5-5.1) 09/21/23 15:53 Chloride 103 mmol/L (98-107) 09/21/23 15:53 Carbon Dioxide 22 mmol/L (22-29) 09/21/23 15:53 Anion Gap 18.5 (5-19) 09/21/23 15:53 BUN 14 mg/dL (6-20) 09/21/23 15:53 Creatinine 0.9 mg/dL (0.5-0.9) 09/21/23 15:53 GFR Calculation 66.5 mL/min (90-130) L 09/21/23 15:53 Glucose 240 mg/dL (65-115) H 09/21/23 15:53 Calculated Osmolality 296 mOsm/kg (285-295) H 09/21/23 15:53 Calcium 9.9 mg/dL (8.5-10.5) 09/21/23 15:53 Total Bilirubin 0.4 mg/dL (0.15-1.2) 09/21/23 15:53 AST 20 U/L (0-32) 09/21/23 15:53 ALT 28 U/L (0-33) 09/21/23 15:53 Alkaline Phosphatase 161 U/L (35-105) H 09/21/23 15:53 Troponin T Baseline < 6 ng/L (0-10) 09/21/23 15:53 Troponin T 120 Minute 6.00 ng/L (0-10) 09/21/23 17:49 Delta Troponin T 0.50877 ABS# (0-10) 09/21/23 17:49 Total Protein 8.3 g/dL (6.6-8.7) 09/21/23 15:53 Albumin 4.6 g/dL (3.5-5.2) 09/21/23 15:53 Globulin 3.7 g/dL (1.3-4.6) 09/21/23 15:53 Urine Color Yellow (Yellow) 09/21/23 19:00 Urine Appearance Clear (CLEAR) 09/21/23 19:00 Urine pH 5 (5-7) 09/21/23 19:00 Ur Specific [place] 1.030 (1.005-1.030) 09/21/23 19:00 Urine Protein 1+ (Negative) H 09/21/23 19:00 Urine Glucose (UA) Norm (Normal) 09/21/23 19:00 Urine Ketones 1+ (Negative) H 09/21/23 19:00 Urine Blood Neg (Negative) 09/21/23 19:00 Urine Nitrate Negative (Negative) 09/21/23 19:00 Urine Bilirubin 1+ (Negative) H 09/21/23 19:00 Urine Urobilinogen 1 mg/dL (Negative) H 09/21/23 19:00 Ur Leukocyte Esterase Negative (Negative) 09/21/23 19:00 Urine RBC None /hpf (0-2) 09/21/23 19:00 Urine WBC 0-4 /hpf (0-5) H 09/21/23 19:00 Ur Squamous Epith Cells 0-4 /hpf (0-5) H 09/21/23 19:00 Calcium Oxalate Crystal 5-10 /hpf H 09/21/23 19:00 Amorphous Sediment Not Reportable 09/21/23 19:00 Urine Bacteria Trace /hpf (NONE) 09/21/23 19:00 Urine Mucus 1+ /hpf 09/21/23 19:00 All radiology interpretation(s) finalized by discharge Discharge Plan Discharge Patient Disposition: Home Clinical Impression: Nausea & vomiting Condition: Stable Prescriptions: No Action propranolol 10 mg tablet 10 mg PO BID Trulicity 1.5 mg/0.5 mL pen injector 1.5 mg SUBCUT DIRECTED Patient Comments: weekly (Thursday) Rx Instructions: once weekly sumatriptan succinate 100 mg tablet 100 mg PO ONCE PRN (Reason: unknown) Rx Instructions: do not exceed 2 doses per 24 hrs cyanocobalamin (vitamin B-12) 1,000 mcg/mL kit 1,000 mcg IM DAILY Qty: 3 0RF Rx Instructions: Take 1 mL injection daily for 3 days. cyanocobalamin (vitamin B-12) 1,000 mcg/mL kit 1,000 mcg IM .weekly Qty: 4 0RF Rx Instructions: Take 1 mL injection weekly for 4 weeks. cyanocobalamin (vitamin B-12) 1,000 mcg/mL kit 1,000 mcg IM DAILY Qty: 12 0RF Rx Instructions: Take 1 mL injection monthly for a year. cyanocobalamin (vitamin B-12) 1,000 mcg/mL kit 100 mcg IM DAILY Qty: 8 1RF Rx Instructions: Administer intramuscular once a day for 3 days, then once a week for 4 weeks, then once a month for 12 months atorvastatin 40 mg Tablet 40 mg PO BEDTIME@2200 tizanidine 4 mg Tablet 4 mg PO TID PRN (Reason: MUSCLE SPASMS) hydrocodone-acetaminophen 5-325 mg Tablet 1 tab PO Q4H PRN (Reason: Pain) topiramate 50 mg Tablet 50 mg PO BID@0600,2200 Protonix 40 mg tablet,delayed release (DR/EC) 40 mg PO DAILY 30 Days Qty: 30 3RF Discharge Orders: Discharge ED (Routine); Ordered 09/21/23 Ordered By: Benjy Lpoez Referrals: Socrates Olvera [Primary Care Provider] - Discharge Diet: Usual diet Discharge Activity: Increase activity as tolerated Patient Instructions: Acute Nausea and Vomiting (ED) Activity Restrictions/Additional Instructions: Please continue taking medications at home. Your workup today in the emergency department was negative for any acute findings, however please follow-up with your primary care for outpatient management and reevaluation. Please return if you have any new or concerning symptoms that arise. Coding Level of Care Code ED Clam Bed Laborer for Candace Gauthier
[2023-09-21 18:13] LABS: Troponin 5 2HR Delta 0.00001 ABS# (0-10)
[2023-09-21] MEDS: iohexol 350 mg/mL 500 mL Btl (per mL) IV (19:02)
[2023-09-21 19:52] LABS: Add Urine Microscopic? YES; Bilirubin Urine 1+ (Negative); Blood Urine Neg (Negative); Glucose Urine UA Norm (Normal); Ketones Urine 1+ (Negative); Leukocyte Esterase Urine Negative (Negative); Nitrate Urine Negative (Negative); Protein Urine 1+ (Negative); Urine Appearance Clear (CLEAR); Urine Color Yellow (Yellow); Urobilinogen Urine 1 mg/dL (Negative); pH Urine 5 (5-7)
[2023-09-21 19:53] LABS: Add Urine Culture? No; Bacteria Urine TRACE /hpf; Mucus Urine 1+ /hpf; Squamous Epithelial Cell Urine 0-4 /hpf (0-5); WBC Urine 0-4 /hpf (0-5)
--- NOTE | 2023-09-21 20:10 | PC.NURSE ---
WARM BLANKET PROVIDED PER PT REQUEST. PT DENIES FURTHER NEEDS AT THIS TIME.
== END 2023-09-21 20:30 | disposition home or self-care (01) ==
PROVIDERS: Physician Assistant; Emergency Provider Physician Assistant; PCP Family Medicine
DX: R11.2 Nausea with vomiting, unspecified (principal); Z79.85 Long-term (current) use of injectable non-insulin antidiabetic drugs
CPT/HCPCS: 36415; 71045; 74177; 80053; 81001; 84484; 85025; 93005; 99285; Q9967